=== PATIENT | female | born 1995 | race Caucasian/White ===

== ENCOUNTER → 2017-09-02 16:40 | Outpatient (CLI) | payer BC ==
[2015-03-28 06:06] VITALS: BMI 26.6
[~2017-09-02 16:40] MED LIST: IBUPROFEN600 MG PO; PERCOCET 10/3251 TA1 PO; PRENATAL COMPLE1 TAB PO
== END | disposition home or self-care (01) ==
LOC: D.LDO 16:40
DX: O26.893 Other specified pregnancy related conditions, third trimester (principal); Z3A.33 33 weeks gestation of pregnancy

== ENCOUNTER → 2017-09-07 20:44 | Outpatient (CLI) | payer BC ==
[2015-03-28 06:06] VITALS: BMI 26.6
[2017-09-07 21:53] LABS: APPEARANCE CLEAR (CLEAR); BILIRUBIN NEGATIVE (NEGATIVE); COLOR YELLOW (YELLOW); GLUCOSE NEGATIVE (NEGATIVE); KETONE NEGATIVE (NEGATIVE); NITRITE NEGATIVE (NEGATIVE); PROTEIN NEGATIVE (NEGATIVE); UROBILINOGEN NORMAL (NORMAL)
== END | disposition home or self-care (01) ==
LOC: D.LDO 20:44
PROVIDERS: Obstetrics & Gynecology
DX: O26.893 Other specified pregnancy related conditions, third trimester (principal); Z3A.33 33 weeks gestation of pregnancy

== ENCOUNTER 2017-09-08 00:07 | Outpatient (CLI) | payer BC ==
[2015-03-28 06:06] VITALS: BMI 26.6
[2017-09-08 07:53] LABS: BASOPHILS 0.2 % (0-2); EOSINOPHILS 0.5 % (0-7); HEMATOCRIT 30.8 % (36.0-48.0); HEMOGLOBIN 9.8 g/dL (12-16); IMMATURE GRANULOCYTES 0.4 % (0-5); LYMPHOCYTES 23.2 % (15-50); MCH 28.1 pg (26.0-34.0); MCHC 31.8 g/dL (31.0-37.0); MCV 88.3 fL (80.0-100.0); MEAN PLATELET VOLUME 10.5 fL (7.4-10.4); MONOCYTES 7.8 % (2-11); NEUTROPHILS 67.9 % (40-80); RBC 3.49 10x6/uL (4.00-5.40); WBC 9.4 10x3/uL (4.8-10.8)
[2017-09-08 07:54] LABS: PLATELET COUNT 228 10x3/uL (130-400)
== END 2017-09-08 09:53 | disposition other institution (70) ==
LOC: D.LDO 00:07
PROVIDERS: Obstetrics & Gynecology
DX: O26.893 Other specified pregnancy related conditions, third trimester (principal); Z3A.33 33 weeks gestation of pregnancy

== ENCOUNTER 2017-11-05 06:57 | Day surgery (SDC) | payer MEDICAID ==
[2017-11-03 15:52] LABS: BASOPHILS 0.4 % (0-2); EOSINOPHILS 2.8 % (0-7); HEMATOCRIT 37.1 % (36.0-48.0); HEMOGLOBIN 11.9 g/dL (12-16); IMMATURE GRANULOCYTES 0.2 % (0-5); LYMPHOCYTES 40.7 % (15-50); MCH 28.1 pg (26.0-34.0); MCHC 32.1 g/dL (31.0-37.0); MCV 87.5 fL (80.0-100.0); MEAN PLATELET VOLUME 10.8 fL (7.4-10.4); MONOCYTES 6.9 % (2-11); PLATELET COUNT 269 10x3/uL (130-400); RBC 4.24 10x6/uL (4.00-5.40); RDW 13.8 % (11.5-14.5); WBC 5.4 10x3/uL (4.8-10.8)
[~2017-11-05] VITALS: Ht 157.5 cm; Wt 54.9 kg
--- NOTE | ~2017-11-05 | OP ---
PATIENT NAME: ASHLEY PRADO MEDICAL RECORD: [id number] :89 LOCATION:[facility] ADMISSION DATE: SURGEON: VARGHESE MONTES MD DATE OF OPERATION: 11/05/2017 PREOPERATIVE DIAGNOSIS: Multiparity, the patient desires permanent sterility. POSTOPERATIVE DIAGNOSIS: Multiparity, the patient desires permanent sterility. PROCEDURE: Laparoscopic tubal ligation via bipolar cautery. SURGEON: Varghese Montes MD ESTIMATED BLOOD LOSS: Minimal. ANESTHESIA: General. IV FLUIDS: Per anesthesia record. SPECIMENS: None. COMPLICATIONS: None apparent. FINDINGS: 1. Grossly normal-appearing uterus. 2. Grossly normal-appearing ovaries and fallopian tubes. PROCEDURE: The patient was taken to the operating room, where general anesthesia was achieved without difficulty. The patient was then prepped and draped in normal sterile fashion in the dorsal lithotomy position in the [facility]. At this point, the bladder was drained of approximately 100 cc of clear urine and a sponge stick was placed into the vagina for uterine elevation. Attention was then turned to the abdomen, where a 5-mm skin incision was made in the inferior aspect of the umbilicus. The 5-mm bladeless trocar was then used to enter the intraperitoneal space under direct visualization of the laparoscope. The patient was then insufflated. Opening pressure was found to be consistent with intraperitoneal placement and placement was confirmed by the laparoscope. Attention was then turned to the inferior aspect of the abdomen, where another 5-mm incision was placed in the midline approximately 5 cm above the pubic symphysis. A second 5-mm bladeless trocar was then introduced under direct visualization of the laparoscope. The bipolar cautery was then used to cauterize the mid section of bilateral fallopian tubes, approximately 5-6 cm in total length, with good hemostasis noted. Following the tubal ligation, the patient was desufflated. The trocars were removed and the skin incisions were repaired with 3-0 Vicryl. The patient tolerated the procedure well and was transported to postanesthesia recovery stable without an incident. TRANSINT:[id number] Voice Confirmation ID: [id number] DOCUMENT ID: [id number] OPERATIVE REPORT [id number] ASHLEY PRADOVARGHESE PRINCE MD at [facility] CC: [id number] DICTATION DATE: 11/15/17 0752 PROOF PRESS OPERATOR: 11/15/17 1346 [facility] 11/05/17 [id number] [place] [address]
[2017-11-05 07:08] VITALS: BP 119/74; Ht 157.5 cm; Wt 54.9 kg
[2017-11-05 07:36] LABS: HCG URINE NEGATIVE (NEGATIVE)
== END 2017-11-05 13:15 | disposition home or self-care (01) ==
LOC: D.OPS 06:57 → D.PAN 08:30 → D.OPS 13:15
PROVIDERS: Obstetrics & Gynecology
DX: Z30.2 Encounter for sterilization (principal); Z01.812 Encounter for preprocedural laboratory examination